=== PATIENT | female | born 2000 | race African-American/Black ===

== ENCOUNTER 2024-05-13 12:54 | Inpatient (IN) ==
[2024-05-13] MEDS ORDERED: Lidocaine 1% VIAL 10 MG/ML 30 ML VIAL INJ PRN (14:16)
[2024-05-13] MEDS ORDERED: Nalbuphine 10 MG/ML 1 ML VIAL IV PRN (14:16)
[2024-05-13] MEDS: miSOPROStol 100 mcg TAB VAGINAL SCH (15:04)
[2024-05-13 16:59] LABS: ABS Eosinophils 0.1 10^3/uL (0.0-0.5); ABS Lymphocytes 2.1 10^3/uL (1.0-4.8); ABS Monocytes 0.7 10^3/uL (0.0-0.9); ABS Neutrophils 6.9 10^3/uL (1.5-7.6); ABS Nucleated RBC 0.02 10^3/ul; Eosinophil % 0.9 %; Hemoglobin 11.5 g/dL (11.5-14.3); Lymphocyte % 21.2 %; Mean Corpuscular Hemoglobin 28.1 pg (27-33); Mean Corpuscular Hgb Conc 33.7 g/dL (31-36); Mean Corpuscular Volume 83.4 fL (80-97); Nucleated Red Blood Cells % 0.2 %/100WBC (0.0-0.8); Platelet Count 433 10^3/uL (150-450); Red Blood Count 4.08 10^6/uL (3.63-4.92); Red Cell Distribution Width 15.8 % (12-17); White Blood Count 9.8 10^3/uL (3.8-11.8)
[2024-05-13 17:20] LABS: Albumin 3.7 g/dL (3.5-5.7); Albumin/Globulin Ratio 1.3 (1-3); Calcium 9.4 mg/dL (8.6-10.3); Creatinine, Serum 0.61 mg/dL (0.51-0.95); Globulin 2.8 g/dL (2-4); Potassium 4.1 mmol/L (3.5-5.0); Total Bilirubin 0.3 mg/dL (0.2-1.0); Total Protein 6.5 g/dL (6.4-8.9)
[2024-05-13 17:23] LABS: Urine Creatinine Concentration 88.55 mg/dL (20.00-320.00); Urine TP Creat Ratio 0.11 mg/mg
[2024-05-13 17:26] LABS: Urine Benzodiazepine Screen None Detected (None Detect); Urine Cannabinoids Screen None Detected (None Detect); Urine Opiates Screen None Detected (None Detect)
[2024-05-13] MEDS: Lactated Ringers 1000 ml BAG 1,000 ML IV ONE (22:10)
[2024-05-13] MEDS ORDERED: Phenylephrine 40 mcg/mL 10mL (400mcg) SYRINGE IV PUSH PRN (22:14)
[2024-05-13] MEDS ORDERED: Sodium Citrate/Citric Acid LIQ 15 ML UDC PO PRN (22:14)
[2024-05-13] MEDS: OBEPIDURAL (200 ML) 200 ML EPIDURAL SCH (22:44)
[2024-05-14 00:09] LABS: Urine Appearance Clear; Urine Bilirubin Negative (Negative); Urine Blood Negative (Negative); Urine Color Colorless; Urine Glucose Negative (Negative); Urine Ketones Negative (Negative); Urine Nitrite Negative (Negative); Urine Protein Negative (Negative); Urine Specific Gravity 1.005 (1.002-1.030); Urine Urobilinogen Negative (Negative)
[2024-05-14] MEDS ORDERED: Ondansetron 4 mg VIAL 2 MG/ML 2 ml VIAL ONE (00:22)
[2024-05-14] MEDS ORDERED: Lidocaine 2% PF 10 ML AMP (OR) ONE (00:32)
[2024-05-14] MEDS ORDERED: Oxytocin 10 UNITS/ML 1 ML VIAL ONE (00:32)
[2024-05-14] MEDS ORDERED: Dexamethasone IV 4 MG/ML VIAL 1 ml VIAL ONE (00:32)
[2024-05-14] MEDS ORDERED: Lidocaine 2% w/ EPI 1:200,000 MPF 20 ML SDV VIAL ONE (00:32)
[2024-05-14] MEDS ORDERED: Acetaminophen IV 1 GM/100ML 1,000 MG/100 ML BAG IV ONE (00:39)
[2024-05-14] MEDS ORDERED: Morphine PF AMP (0.5MG/ML) 5 MG/10 ML AMP ONE (00:41)
[2024-05-14] MEDS ORDERED: Propofol 10 MG/ML 20 ML BTL ONE (00:46)
[2024-05-14] MEDS ORDERED: Ondansetron 4 mg VIAL 2 MG/ML 2 ml VIAL IV PRN (01:13)
[2024-05-14] MEDS ORDERED: Naloxone 0.4 mg VIAL 0.4 mg/ml 1 ml VIAL IV PUSH PRN (01:13)
[2024-05-14] MEDS ORDERED: Acetaminophen IV 1 GM/100ML 1,000 MG/100 ML BAG IV PRN (01:13)
[2024-05-14] MEDS ORDERED: Metoclopramide 5 MG/ML VIAL (10 mg) IV PRN (01:13)
[2024-05-14] MEDS ORDERED: Glycerin ADULT 2.4 gm SUPP PR PRN (01:20)
[2024-05-14] MEDS ORDERED: Dibucaine 1% OINT 28.35 GM TUBE PR PRN (01:20)
[2024-05-14] MEDS ORDERED: Witch Hazel PAD JAR TOPICAL PRN (01:20)
[2024-05-14] MEDS: Phenylephrine 40 mcg/mL 10mL (400mcg) SYRINGE IV PUSH PRN (01:52)
[2024-05-14] MEDS ORDERED: Lactated Ringers 1000 ml BAG 1,000 ML IV SCH (02:00)
[2024-05-14] MEDS: Oxytocin in LR 20,000 MILLI.UNIT/1,000 ML BAG IV SCH (02:31)
[2024-05-14] MEDS: Lidocaine 1.5% EPI 1:200,000 30 ML SDV ONE (03:22)
[2024-05-14] MEDS: OBEPIDURAL (200 ML) 200 ML EPIDURAL ONE (03:22)
[2024-05-14] MEDS: Lactated Ringers 1000 ml BAG 1,000 ML IV ONE (03:22)
[2024-05-14] MEDS: Phenylephrine 40 mcg/mL 10mL (400mcg) SYRINGE ONE (03:22)
[2024-05-14] MEDS: ceFOXitin 2 GM IVPREMIX 2 GM/50 ML BAG ONE (03:23)
[2024-05-14] MEDS: Lactated Ringers 1000 ml BAG 1,000 ML IV SCH ×2 (20:51)
[2024-05-14] MEDS: Buffered Lidocaine 1% SYRIN 1 ml INTRADERM ONE (20:51)
[2024-05-14] MEDS: Dinoprostone 10 MG VAG.SUPP VAGINAL ONE (20:58)
[2024-05-15 07:40] LABS: ABS Basophils 0.1 10^3/uL (0.0-0.1); ABS Eosinophils 0.1 10^3/uL (0.0-0.5); ABS Lymphocytes 3.5 10^3/uL (1.0-4.8); ABS Monocytes 1.2 10^3/uL (0.0-0.9); ABS Neutrophils 11.4 10^3/uL (1.5-7.6); Eosinophil % 0.5 %; Hematocrit 30.7 % (35-45); Hemoglobin 10.4 g/dL (11.5-14.3); Lymphocyte % 21.5 %; Mean Corpuscular Hemoglobin 28.5 pg (27-33); Mean Corpuscular Hgb Conc 33.9 g/dL (31-36); Mean Corpuscular Volume 84.3 fL (80-97); Mean Platelet Volume 7.6 fL (7.5-11.2); Platelet Count 391 10^3/uL (150-450); Red Blood Count 3.65 10^6/uL (3.63-4.92); White Blood Count 16.2 10^3/uL (3.8-11.8)
[2024-05-17 07:49] VITALS: BP 130/71
== END 2024-05-17 13:20 | disposition home or self-care (01) | DRG 540 ==
LOC: MCHOBOUT 12:54 → MCHOB 13:53

== ENCOUNTER 2024-05-30 03:30 | Inpatient (IN) ==
[2024-05-30] MEDS: Ondansetron 4 mg VIAL 2 MG/ML 2 ml VIAL IV ONE (04:30)
[2024-05-30] MEDS: Lactated Ringers 1000 ml BAG 1,000 ML IV ONE (04:30)
[2024-05-30 04:41] LABS: ABS Eosinophils 0.2 10^3/uL (0.0-0.5); ABS Lymphocytes 2.4 10^3/uL (1.0-4.8); ABS Monocytes 0.5 10^3/uL (0.0-0.9); ABS Neutrophils 5.9 10^3/uL (1.5-7.6); ABS Nucleated RBC 0.01 10^3/ul; Hematocrit 31.3 % (35-45); Hemoglobin 10.4 g/dL (11.5-14.3); Lymphocyte % 26.6 %; Mean Corpuscular Hemoglobin 27.6 pg (27-33); Mean Corpuscular Hgb Conc 33.2 g/dL (31-36); Mean Platelet Volume 6.6 fL (7.5-11.2); Nucleated Red Blood Cells % 0.1 %/100WBC (0.0-0.8); Platelet Count 703 10^3/uL (150-450); Red Blood Count 3.77 10^6/uL (3.63-4.92); Red Cell Distribution Width 16.4 % (12-17); White Blood Count 8.9 10^3/uL (3.8-11.8)
[2024-05-30 05:06] LABS: ALT 11 U/L (7-52); AST 16 U/L (13-39); Albumin 3.8 g/dL (3.5-5.7); Albumin/Globulin Ratio 1.5 (1-3); Alkaline Phosphatase 151 U/L (35-149); Anion Gap 10 mmol/L (2-16); Blood Urea Nitrogen 11 mg/dL (6-24); C Reactive Protein 12.19 mg/L (<8.01); CO2 Carbon Dioxide 26 mmol/L (22-32); Calcium 8.9 mg/dL (8.6-10.3); Chloride 103 mmol/L (101-111); Creatinine, Serum 0.62 mg/dL (0.51-0.95); Globulin 2.6 g/dL (2-4); Glucose 118 mg/dL (70-100); High Sens Troponin Baseline 3 pg/mL (<15); Lipase < 10 U/L (11.0-82.0); Potassium 3.7 mmol/L (3.5-5.0); Sodium 139 mmol/L (135-145); Total Bilirubin 0.3 mg/dL (0.2-1.0); Total Protein 6.4 g/dL (6.4-8.9); eGFR CKD-EPI 127.5 (>60)
[2024-05-30 05:39] LABS: Urine Appearance Clear; Urine Bilirubin Negative (Negative); Urine Blood 2+ (Negative); Urine Color Light-Yellow; Urine Glucose Negative (Negative); Urine Ketones Negative (Negative); Urine Nitrite Negative (Negative); Urine Protein Negative (Negative); Urine Specific Gravity 1.014 (1.002-1.030); Urine Urobilinogen Negative (Negative)
[2024-05-30 06:22] LABS: High Sensitivity Troponin 1 Hr 32 pg/mL (<15)
[2024-05-30 06:47] LABS: Urine Bacteria Absent /HPF (Absent); Urine Red Blood Cell 2+(6-10/hpf) /HPF (0-Trace); Urine Squamous Epithelial Cell Present /HPF (Absent); Urine White Blood Cell 2+(11-20/hpf) /HPF (0-Trace)
[2024-05-30] MEDS: Iohexol 350 (CONTRAST) 500 ML MDV IV ONE (07:07)
[2024-05-30] MEDS ORDERED: Sulfur Hexaflouride MICROSPHR 25 MG VIAL IV PRN (09:14)
[2024-05-30] MEDS ORDERED: Ondansetron 4 mg VIAL 2 MG/ML 2 ml VIAL IV PRN (09:14)
[2024-05-30] MEDS: Enoxaparin 40 MG/0.4 ML SYR SUBCUT SCH (10:50)
[2024-05-30] MEDS: Pantoprazole VIAL 40 MG VIAL IV SCH (10:50)
[2024-05-30 12:39] LABS: High Sensitivity Troponin 1 Hr 3 pg/mL (<15)
[2024-05-31 09:04] LABS: ABS Basophils 0.1 10^3/uL (0.0-0.1); ABS Eosinophils 0.1 10^3/uL (0.0-0.5); ABS Lymphocytes 2.2 10^3/uL (1.0-4.8); ABS Monocytes 0.3 10^3/uL (0.0-0.9); ABS Neutrophils 3.6 10^3/uL (1.5-7.6); Eosinophil % 2.2 %; Hematocrit 31.1 % (35-45); Hemoglobin 10.6 g/dL (11.5-14.3); Lymphocyte % 34.8 %; Mean Corpuscular Hemoglobin 28.4 pg (27-33); Mean Corpuscular Volume 83.4 fL (80-97); Platelet Count 679 10^3/uL (150-450); Red Blood Count 3.72 10^6/uL (3.63-4.92); Red Cell Distribution Width 16.4 % (12-17); White Blood Count 6.2 10^3/uL (3.8-11.8)
[2024-05-31 09:30] LABS: Calcium 8.8 mg/dL (8.6-10.3); Creatinine, Serum 0.61 mg/dL (0.51-0.95); Potassium 4.4 mmol/L (3.5-5.0)
[2024-05-31] MEDS: [UNRECOGNIZED DRUG - OTHER] PO SCH (10:31)
[2024-05-31] MEDS ORDERED: Midazolam 10 mg/10 ml VIAL 1 mg/ml 10 ml VIAL (10 mg) ONE (16:04)
[2024-05-31] MEDS ORDERED: fentaNYL 100 mcg/2 ml 50 MCG/ML VIAL ONE (16:04)
[2024-05-31] MEDS: Cholecalciferol (VIT D3) 1,000 unit TAB PO SCH (16:37)
[2024-05-31] MEDS: Lactated Ringers 1000 ml BAG 1,000 ML IV ONE (22:47)
[2024-06-01] MEDS: Lactated Ringers 1000 ml BAG 1,000 ML IV ONE (12:04)
[2024-06-01 14:11] LABS: ABS Eosinophils 0.1 10^3/uL (0.0-0.5); ABS Lymphocytes 2.3 10^3/uL (1.0-4.8); ABS Monocytes 0.3 10^3/uL (0.0-0.9); ABS Neutrophils 5.4 10^3/uL (1.5-7.6); ABS Nucleated RBC 0.01 10^3/ul; Eosinophil % 0.7 %; Hematocrit 31.4 % (35-45); Hemoglobin 10.6 g/dL (11.5-14.3); Lymphocyte % 28.5 %; Mean Corpuscular Hemoglobin 28.2 pg (27-33); Mean Corpuscular Hgb Conc 33.8 g/dL (31-36); Mean Corpuscular Volume 83.4 fL (80-97); Mean Platelet Volume 6.8 fL (7.5-11.2); Nucleated Red Blood Cells % 0.1 %/100WBC (0.0-0.8); Platelet Count 728 10^3/uL (150-450); Red Blood Count 3.76 10^6/uL (3.63-4.92); Red Cell Distribution Width 16.1 % (12-17); White Blood Count 8.2 10^3/uL (3.8-11.8)
[2024-06-01] MEDS ORDERED: Bupivacaine 0.5% SDV PF 30ML VIAL ONE (14:51)
[2024-06-01 14:52] LABS: C Reactive Protein 10.37 mg/L (<8.01); Calcium 9.4 mg/dL (8.6-10.3); Creatinine, Serum 0.65 mg/dL (0.51-0.95)
[2024-06-01] MEDS ORDERED: Naloxone 0.4 mg VIAL 0.4 mg/ml 1 ml VIAL IV PRN (15:20)
[2024-06-01] MEDS ORDERED: Midazolam 2 mg/2 ml VIAL 1 mg/ml 2 ml VIAL (2 mg) ONE (15:36)
[2024-06-01] MEDS ORDERED: fentaNYL 100 mcg/2 ml 50 MCG/ML VIAL ONE ×3 (15:36→18:08)
[2024-06-01] MEDS ORDERED: Lidocaine 2% PF 5 ML VIAL ONE (15:36)
[2024-06-01] MEDS: cefTRIAXone 1 gm/50 mL D5W 1 GM/50 ML BAG IV SCH (15:38)
[2024-06-01] MEDS ORDERED: Rocuronium 50 mg VIAL 10 mg/ml 5 ml VIAL (50 mg) ONE ×2 (15:49→16:34)
[2024-06-01] MEDS ORDERED: Propofol 10 MG/ML 20 ML BTL ONE ×2 (15:50→15:55)
[2024-06-01] MEDS ORDERED: Ondansetron 4 mg VIAL 2 MG/ML 2 ml VIAL ONE ×2 (15:50→18:23)
[2024-06-01] MEDS ORDERED: Dexamethasone IV 4 MG/ML VIAL 1 ml VIAL ONE (15:50)
[2024-06-01] MEDS: fentaNYL 100 mcg/2 ml 50 MCG/ML VIAL IV PRN (18:09)
[2024-06-01] MEDS: Ondansetron 4 mg VIAL 2 MG/ML 2 ml VIAL IV PRN (18:24)
[2024-06-01] MEDS: metroNIDAZOLE IV 500 MG/100ML 500 MG/100 ML BAG IVPB SCH (20:24)
[2024-06-02 10:11] VITALS: BP 114/73
== END 2024-06-02 10:52 | disposition home or self-care (01) | DRG 263 ==
LOC: EDHOLD 03:30 → ED 03:30 → SUATTDRO 08:53 → MEDTELE 16:37
PROVIDERS: ADMIT Internal Medicine; ATTEND Student in an Organized Health Care Education/Training Program